=== PATIENT | female | born 1985 | race Caucasian/White ===

== ENCOUNTER 2017-05-17 13:25 | Day surgery (SDC) | payer BC ==
[~2017-05-17] VITALS: Ht 160 cm; Wt 76.2 kg
--- NOTE | ~2017-05-17 | OP ---
PATIENT NAME: WAYNE VEGA MEDICAL RECORD: [id number] :81 LOCATION:[facility] ADMISSION DATE: SURGEON: URIEL MARTINEZ DO DATE OF OPERATION: 05/17/2017 PROCEDURE PERFORMED: Left hand incision and debridement. PREOPERATIVE DIAGNOSIS: Infected left hand from dog bite. POSTOPERATIVE DIAGNOSIS: Infected left hand from dog bite. INDICATIONS: Ms. Vega is a 32-year-old female who was bit by a dog approximately 3 days ago, the wound had closed up. It had been draining previously. She has been seen in urgent care and was given doxycycline, clindamycin and even Rocephin shots and did not help. She started to get cellulitis of her arm and in the hand, and she was brought to my office. After this was done, the patient was seen to have fluctuant fluid in the space between the third and fourth MCP joints. The spots of the dog bite had been closed. She had one on the ring finger on the volar side, palmar side and then on the dorsal side of the hand over the dorsum of the hand. Once this was discovered, the patient was scheduled for surgery today to do an I&D due to the fact she has not responding to antibiotics. The patient was then consented for the procedure. DESCRIPTION OF PROCEDURE: The patient was given a block by anesthesia in the preoperative area and taken to the OR suite, laid in supine position, given TIVA for anesthesia. After this was done, timeout was performed, everyone was in agreement with the correct side, site and the patient. The left upper extremity was prepped and draped in sterile fashion. After prep and drape the procedure commenced with an incision right over the space between the third and fourth metacarpophalangeal joints where the flexion as well as the skin incision was made with a 15 blade and once the skin incision made, scissors were used to open it up. Good amount of purulent fluid being gushed out through that site. Cultures were taken at that time and the antibiotic vancomycin was started. After the vancomycine was started we continued to debride the site with a curette, debriding any necrotic tissue or any infected tissue. A freer was used also to run up and down the extensor tendon of the third and fourth metacarpals and the flexor tendons were probed as well and no infection was seen in the tendon sheath. No purulence was seen to be in them. Copious amounts of irrigation were done at that time. The dog bite that had been previously closed was opened up, then on the dorsum of the hand towards the third metacarpophalangeal joint. This was opened as well and irrigated as well as the puncture wound on the palmar surface of the ring finger and no purulence came out in either one of these. After irrigation and probing, there was no purulent material or fluid left coming out, seemed to be clean at that time. The incision that was made with a knife was then closed very loosely with three simple interrupted 5-0 nylon sutures and then the wound was dressed with Adaptic, 4 x 4s, Webril and [place]. The patient will be seen in my office tomorrow for followup. COMPLICATIONS: None. BLOOD LOSS: Minimal. TRANSINT:[id number] Voice Confirmation ID: [id number] DOCUMENT ID: [id number] OPERATIVE REPORT [id number] WAYNE VEGA,URIEL Spence DO at 1040 CC: [id number] DICTATION DATE: 05/17/17 1649 TOUR AGENT: 05/17/17 2312 [facility] 05/17/17 [facility] [address] [place] [address]
[2017-05-17] MEDS ORDERED: ULTRAM50 MG PO (14:07)
[2017-05-17] MEDS ORDERED: SYNTHROID50 MCG PO (14:07)
[2017-05-17] MEDS ORDERED: SPRINTEC1 TAB PO (14:08)
[2017-05-17] MEDS ORDERED: MONODOX100 MG PO ×2 (14:08→16:43)
[2017-05-17 14:09] VITALS: Ht 160 cm; Wt 76.2 kg
[2017-05-17 14:41] LABS: BASOPHILS 0.1 % (0-2); EOSINOPHILS 0.6 % (0-7); HEMATOCRIT 39.9 % (36.0-48.0); HEMOGLOBIN 13.4 g/dL (12-16); IMMATURE GRANULOCYTES 0.1 % (0-5); LYMPHOCYTES 17.4 % (15-50); MCH 32.7 pg (26.0-34.0); MCHC 33.6 g/dL (31.0-37.0); MCV 97.3 fL (80.0-100.0); MEAN PLATELET VOLUME 10.5 fL (7.4-10.4); MONOCYTES 6.5 % (2-11); NEUTROPHILS 75.3 % (40-80); PLATELET COUNT 195 10x3/uL (130-400); RDW 12.7 % (11.5-14.5); WBC 9.8 10x3/uL (4.8-10.8)
[2017-05-17 15:05] LABS: HCG SERUM NEGATIVE (NEGATIVE)
[2017-05-17] MEDS ORDERED: CIPRO500 MG PO (16:41)
[2017-05-17] MEDS ORDERED: HYDROCODON-ACE1 EAC7 PO (16:43)
[2017-05-25 16:14] LABS: AEROBE ID Final report (())
== END 2017-05-17 17:30 | disposition home or self-care (01) ==
LOC: D.OPS 13:25
PROVIDERS: Anesthesiology; Orthopaedic Surgery
DX: S61.452A Open bite of left hand, initial encounter (principal); E03.9 Hypothyroidism, unspecified; Z01.812 Encounter for preprocedural laboratory examination